=== PATIENT | female | born 1985 | race African-American/Black ===

== ENCOUNTER 2017-05-12 18:02 | Emergency (ER) | payer MEDICAID, OTHER ==
[2017-05-12 18:09] VITALS: BP 99/85; PULSE 75; RESP 22; TEMP 98.6; O2SAT 100
[2017-05-12] MEDS ORDERED: NS 1,000 ML IV ONE (19:34)
[2017-05-12 19:42] LABS: COLOR COLORLESS; LEUKOCYTE ESTERASE,URINE TRACE (NEGATIVE); NITRITE,URINE NEGATIVE (NEGATIVE)
[2017-05-12 19:50] LABS: BACTERIA TRACE /hpf (NONE SEEN)
--- NOTE | 2017-05-12 19:58 | EDPHY ---
H & P Stated Complaint: R ABD PAIN/PROBLEMS WITH URINATION Time Seen by Provider: 05/12/17 18:38 HPI/ROS: CHIEF COMPLAINT: Right lower quadrant pain, 16 weeks , dysuria HISTORY OF PRESENT ILLNESS: The patient presents to the ED with 2 days of right lower quadrant pain, dysuria and a known intrauterine . She is at 16 weeks. She reports a ultrasound in [place] at 8 weeks which diagnosed an IUP. She denies vaginal bleeding or discharge. The patient denies prior abdominal surgical history. The patient denies flank pain or vomiting. She does report mild nausea. The patient has only been taking a vitamin. She does have a remote history of cystitis. REVIEW OF SYSTEMS: A comprehensive 10 point review of systems is otherwise negative aside from elements mentioned in the history of present illness. Source: Patient Exam Limitations: No limitations - Personal History LMP (Females 10-55): Current Tetanus/Diphtheria Vaccine: No - Medical/Surgical History Hx Asthma: No Hx Chronic Respiratory Disease: No Hx Diabetes: No Hx Cardiac Disease: No Hx Renal Disease: No Hx Cirrhosis: No Hx Alcoholism: No Hx HIV/AIDS: No Hx Splenectomy or Spleen Trauma: No Other PMH: DENIES - Social History Smoking Status: Never smoked - Physical Exam Exam: General Appearance: Alert, no distress Eyes: Pupils equal and round no pallor or injection ENT, Mouth: Mucous membranes moist Respiratory: There are no retractions, lungs are clear to auscultation Cardiovascular: Regular rate and rhythm Gastrointestinal: Gravid uterus, tenderness to palpation noted in the right lower quadrant, no CVA tenderness appreciated Neurological: A&O, normal motor function, normal sensory exam, normal cranial nerves Skin: Warm and dry, no rashes Musculoskeletal: Neck is supple nontender Extremities: symmetrical, full range of motion Constitutional: Initial Vital Signs Temperature (C) 37 C 05/12/17 18:06 Heart Rate 75 05/12/17 18:06 Respiratory Rate 22 H 05/12/17 18:06 Blood Pressure 99/85 H 05/12/17 18:06 O2 Sat (%) 100 05/12/17 18:06 O2 Delivery Mode Room Air Allergies/Adverse Reactions: No Known Allergies Allergy (Unverified 05/12/17 18:06) Home Medications: Medication Instructions Recorded 05/12/17 Medical Decision Making - Diagnostics Imaging Results: Imaging Impressions Abdomen Ultrasound 05/12/17 19:34 Impression: 1. Nondiagnostic assessment of the appendix. 2. Tiny amount of free fluid in the right lower quadrant. 3. Normal appearance of the right ovary, with no adnexal mass or torsion. Findings were discussed with Trino Acosta MD at 20:34, on 05/12/2017. ED Course/Re-evaluation: The patient presents to the emergency department with 2 day history of right- sided abdominal pain. She is 16 weeks . She has no associated bleeding or dysuria. The patient was noted to have minimal tenderness on exam. She was taken for a pelvic ultrasound which demonstrated no evidence of a cyst , torsion or significant fluid collection. The patient had no obvious right lower quadrant tenderness while having her ultrasound exam. They are unable to visualize the appendix. The patient did have complaints of dysuria. She is noted to have a normal urinalysis in the emergency department. I did verify normal heart tones and movement with a bedside ultrasound. The patient had an IV established. She received a L of normal saline. The patient has no hypertension and does have a viable intrauterine noted on her ultrasound exam today. At this point time I do feel the patient can be discharged home with likely round ligament pain. As I reexamined her at 8:40 p.m. she has more tenderness on the right side of her uterus. Her right lower quadrant tenderness has markedly improved. My clinical suspicion for acute appendicitis is quite low. I did tell the patient that we have not fully excluded and I would like her to return to the ED in 12 hours for recheck for any ongoing abdominal pain. The patient will schedule a follow-up appointment with [facility]. She will contact their office tomorrow. Differential Diagnosis: Differential diagnosis considered includes appendicitis, ectopic , urinary tract infection, round ligament pain, mesenteric adenitis - Data Points Laboratory Results: Laboratory Results 05/12/17 19:55 05/12/17 19:55 05/12/17 05/12/17 05/12/17 19:55 19:55 18:45 WBC 7.95 10^3/uL 10^3/uL (3.80-9.50) RBC 4.13 10^6/uL L 10^6/uL (4.18-5.33) Hgb 11.4 g/dL L g/dL (12.6-16.3) Hct 33.2 % L % (38.0-47.0) MCV 80.4 fL L fL (81.5-99.8) MCH 27.6 pg L pg (27.9-34.1) MCHC 34.3 g/dL g/dL (32.4-36.7) RDW 12.5 % % (11.5-15.2) Plt Count 237 10^3/uL 10^3/uL (150-400) MPV 10.5 fL fL (8.7-11.7) Neut % (Auto) 54.4 % % (39.3-74.2) Lymph % (Auto) 36.1 % % (15.0-45.0) [place] % (Auto) 6.0 % % (4.5-13.0) Eos % (Auto) 2.8 % % (0.6-7.6) Baso % (Auto) 0.4 % % (0.3-1.7) Nucleat RBC Rel Count 0.0 % % (0.0-0.2) Absolute Neuts (auto) 4.33 10^3/uL 10^3/uL (1.70-6.50) Absolute Lymphs (auto) 2.87 10^3/uL 10^3/uL (1.00-3.00) Absolute Monos (auto) 0.48 10^3/uL 10^3/uL (0.30-0.80) Absolute Eos (auto) 0.22 10^3/uL 10^3/uL (0.03-0.40) Absolute Basos (auto) 0.03 10^3/uL 10^3/uL (0.02-0.10) Absolute Nucleated RBC 0.00 10^3/uL 10^3/uL (0-0.01) Immature Gran % 0.3 % % (0.0-1.1) Immature Gran # 0.02 10^3/uL 10^3/uL (0.00-0.10) Sodium 134 mEq/L mEq/L (134-144) Potassium 3.7 mEq/L mEq/L (3.5-5.2) Chloride 104 mEq/L mEq/L (97-110) Carbon Dioxide 21 mEq/l L mEq/l (22-31) Anion Gap 9 mEq/L mEq/L (8-16) BUN 4 mg/dL L mg/dL (7-23) Creatinine 0.5 mg/dL L mg/dL (0.6-1.0) Estimated GFR > 60 Glucose 81 mg/dL mg/dL (70-100) Calcium 8.9 mg/dL mg/dL (8.5-10.4) Urine Color COLORLESS Urine Appearance CLEAR Urine pH 7.0 (5.0-7.5) Ur Specific [place] 1.001 L (1.002-1.030) Urine Protein NEGATIVE (NEGATIVE) Urine Ketones NEGATIVE (NEGATIVE) Urine Blood NEGATIVE (NEGATIVE) Urine Nitrate NEGATIVE (NEGATIVE) Urine Bilirubin NEGATIVE (NEGATIVE) Urine Urobilinogen NEGATIVE EU EU (0.2-1.0) Ur Leukocyte Esterase TRACE H (NEGATIVE) Urine RBC 1-3 /hpf /hpf (0-3) Urine WBC 1-3 /hpf /hpf (0-3) Ur Epithelial Cells TRACE /lpf /lpf (NONE-1+) Urine Bacteria TRACE /hpf H /hpf (NONE SEEN) Urine Glucose NEGATIVE (NEGATIVE) Medications Given: Discontinued Medications Sodium Chloride (Ns) 1,000 mls @ 0 mls/hr IV EDNOW ONE; Wide Open PRN Reason: Protocol Stop: 05/12/17 19:35 Last Admin: 05/12/17 19:53 Dose: 1,000 mls Departure - Departure Disposition: Home, Routine, Self-Care Clinical Impression: Abdominal pain, Intrauterine Condition: Good Instructions: (ED), Acute Abdominal Pain (ED) Additional Instructions: 1. Sometimes we are unable to diagnose an obvious cause of abdominal pain in the Emergency Department. Based upon our evaluation today, I believe your pain may be simply secondary to ligament pain associated with a growing uterus. Because more serious conditions can be difficult to diagnose early in the course of their presentation, we ask that you return to the Emergency Department in 8-12 hours for a recheck if you are still having pain. This is necessary to exclude the development of a more serious condition such as appendicitis or other intra-abdominal emergency. In the event your pain markedly increases before that time or you develop intractable vomiting or fever return to the Emergency Department immediately. 2. Please contact Dr. Babcock of [facility] to see if you can arrange a follow-up appointment in the next 1-2 days for a recheck. When you contact their office, be sure to tell them that you were in the emergency department with abdominal pain. 3. Continue Tylenol as needed for pain Referrals: [facility] [Provider Group] - As per Instructions
[2017-05-12 20:03] LABS: % IMMATURE GRANULYOCYTES 0.3 % (0.0-1.1); ABSOLUTE IMMATURE GRANULOCYTES 0.02 10^3/uL (0.00-0.10); ADD DIFF? NO; ADD MORPH? NO; ADD SCAN? NO; ATYPICAL LYMPHOCYTE FLAG 10 (0-99); FRAGMENT RBC FLAG 0 (0-99); HEMATOCRIT 33.2 % (38.0-47.0); HEMOGLOBIN 11.4 g/dL (12.6-16.3); LEFT SHIFT FLG 0 (0-99); LIPEMIA HEMOLYSIS FLAG 90 (0-99); MEAN CELL HEMOGLOBIN 27.6 pg (27.9-34.1); MEAN CELL HEMOGLOBIN CONCENTR. 34.3 g/dL (32.4-36.7); MEAN CELL VOLUME 80.4 fL (81.5-99.8); MEAN PLATELET VOLUME 10.5 fL (8.7-11.7); PLATELET CLUMPS FLAG 0 (0-99); PLATELET COUNT 237 10^3/uL (150-400); RED BLOOD CELL COUNT 4.13 10^6/uL (4.18-5.33); RED CELL DISTRIBUTION WIDTH 12.5 % (11.5-15.2)
[2017-05-12 20:33] LABS: ANION GAP 9 mEq/L (8-16); CALCIUM 8.9 mg/dL (8.5-10.4); CARBON DIOXIDE 21 mEq/l (22-31); CHLORIDE 104 mEq/L (97-110); CREATININE 0.5 mg/dL (0.6-1.0); GLOMERULAR FILTRATION RATE > 60; GLUCOSE 81 mg/dL (70-100); POTASSIUM 3.7 mEq/L (3.5-5.2); SODIUM 134 mEq/L (134-144)
== END 2017-05-12 21:10 | disposition home or self-care (01) ==
DX: O26.892 Other specified pregnancy related conditions, second trimester (principal); R10.31 Right lower quadrant pain; O99.282 Endocrine, nutritional and metabolic diseases complicating pregnancy, second trimester; E86.9 Volume depletion, unspecified; Z3A.16 16 weeks gestation of pregnancy

== ENCOUNTER 2017-10-01 13:59 | Observation (INO) | payer OTHER ==
[2017-10-01] MEDS ORDERED: ONDANSETRON 4 MG/2 ML VIAL IVP PRN (14:07)
[2017-10-01] MEDS ORDERED: METOCLOPRAMIDE 10 MG/2 ML VIAL IVP PRN (14:08)
[2017-10-01] MEDS ORDERED: LR 1,000 ML IV SCH (14:30)
[2017-10-01 14:48] LABS: PLATELET COUNT 210 10^3/uL (150-400)
== END 2017-10-01 17:59 | disposition home or self-care (01) ==
LOC: FLD 13:59
PROVIDERS: ADMIT Advanced Practice Midwife; ATTEND Advanced Practice Midwife
DX: O21.2 Late vomiting of pregnancy (principal); Z3A.36 36 weeks gestation of pregnancy
CPT/HCPCS: 59025; G0378; J2405

== ENCOUNTER 2017-10-30 21:16 | Inpatient (IN) | payer OTHER ==
[2017-10-30] MEDS ORDERED: ONDANSETRON 4 MG/2 ML VIAL IVP PRN (21:55)
[2017-10-30] MEDS ORDERED: LR 1,000 ML IV ONE (22:00)
[2017-10-30 22:48] LABS: PLATELET COUNT 211 10^3/uL (150-400)
[2017-10-30] MEDS: ACETAMINOPHEN 500 MG TAB PO PRN (22:53)
[2017-10-30] MEDS: LR 1,000 ML IV SCH (22:55)
[2017-10-31] MEDS ORDERED: PROMETHAZINE HCL 25 MG/ML INJ IM ONE (00:15)
[2017-10-31] MEDS: ACETAMINOPHEN 500 MG TAB PO PRN (03:31)
[2017-10-31] MEDS ORDERED: LR 500 ML IV PRN (10:46)
[2017-10-31] MEDS ORDERED: AMMONIA AROMATIC 1 EACH AMP IH PRN (10:47)
[2017-10-31] MEDS ORDERED: LR 1,000 ML IV PRN (10:47)
[2017-10-31] MEDS ORDERED: OXYTOCIN/RINGERS LACTATE 1,000 ML IV PRN (10:47)
[2017-10-31] MEDS ORDERED: OLIVE OIL 118 ML BTL MISC PRN (10:47)
[2017-10-31] MEDS ORDERED: MISOPROSTOL 200 MCG TAB PO PRN (10:47)
[2017-10-31] MEDS ORDERED: AMPICILLIN SODIUM 2 GM in STERILE WATER INJ 25 ML IV ONE (10:47)
[2017-10-31] MEDS ORDERED: EPSOM SALT 454 GM TP PRN (10:47)
[2017-10-31] MEDS ORDERED: LIDOCAINE 1% 300 MG/30 ML SDV SC PRN (10:47)
[2017-10-31] MEDS ORDERED: TERBUTALINE SULFATE 1 MG/ML VIAL IV PRN (10:47)
[2017-10-31] MEDS ORDERED: OXYTOCIN/RINGERS LACTATE 500 ML IV SCH (11:00)
[2017-10-31] MEDS: LR 1,000 ML IV SCH ×2 (11:16→16:20)
[2017-10-31 12:01] LABS: PLATELET COUNT 181 10^3/uL (150-400)
--- NOTE | 2017-10-31 13:32 | GHP ---
[f rep st] HISTORY AND PHYSICAL DATE OF ADMISSION: 10/30/2017 ADMITTING DIAGNOSIS: Intrauterine at 40-and-4/7 weeks gestation with active labor, headach e, and proteinuria. Admission for augmentation of labor. HISTORY OF PRESENT ILLNESS: The patient is a 32-year-old, 3, para 0-0-2-0 with a last menstr ual period of 01/20/2017, and an EDC of 10/27/2017, which was confirmed by a first trimester ultrasou nd. She has had good care at [facility] since registration at 17 weeks . She initially had her first trimester care in [place]. She presented with prodromal labor c ontractions, beginning on . She was evaluated in the office yesterday and was found to have normal blood pressure 120/80, and a vaginal exam was 1, 90%, and -2. Overnight, she continued to hav e worsening pain and contractions and severe nausea/vomiting, and she presented complaining of a head ache. When she was evaluated in labor and delivery, her blood pressures remained normal. PIH labs w ere also normal, and her cervix was 1 cm, but she was dipping 2+ proteinuria on a urine dip. She rec eived IV hydration and rested overnight, and a p:c ratio was repeated, and the level was 0.9. She co ntinued to have normal blood pressures in the 110s to 120s over 70s to 80s. She received morphine sl eep, and her headache resolved. Contractions have continued in mild form. In the morning, I evaluat ed her. She reported her headache has resolved. Her contractions were mild, but I checked her cervi louann exam was 3, 90%, -2. Therefore, because she had changed her cervix and had proteinuria and some concerning signs for preeclampsia, I made the decision to admit her for labor and labor augmentation with Pitocin. The patient has no significant risk factors except for anemia. PAST OBSTETRICAL HISTORY: She had an elective termination in 2013 and a SAB with D and C in 2014. PAST MEDICAL HISTORY: She has no significant past medical history. PAST SURGICAL HISTORY: Just the D and C x2. ALLERGIES: No known drug allergies. MEDICATIONS: Include vitamins and DHEA. LABS: She is O positive, antibody negative, RPR nonreactive. Rubella immune. Hepatitis negative. HIV negative. Pap normal, except for yeast. Gonorrhea and chlamydia negative. 1-hour GTT 129. GBS is positive. SOCIAL HISTORY: She is . Her is in the [employer], and he is deployed in [employer] for the ne xt 9 months. She lives with her sister, and she is from [place]. She denies tobacco, alcohol, and evita g use, and she is currently not working. FAMILY HISTORY: Noncontributory. PHYSICAL EXAMINATION: VITAL SIGNS: Today, she is afebrile. Blood pressures remain normal one-teens over 70s. heart tones 140s, reactive, moderate variability, category 1. Contractions every 3 -5 minutes. Again, cervix is 3, 90%, -2, and pH labs were normal. ASSESSMENT/PLAN: A 32-year-old 3, para 0-0-2-0 at 40-and-4/7 weeks' gestation for augmentati on of labor. Patient will receive Pitocin per protocol. status is reassuring. Repeated her p H labs. Will keep a close eye on her blood pressure and her vital signs. Pain management as desired by patient. /[id number]/MODL
[2017-10-31] MEDS ORDERED: fentaNYL 200 MCG, BUPIVACAINE 0.5% 20 ML in NS 100 ML EP SCH (14:30)
[2017-10-31] MEDS ORDERED: BUPIVACAINE 0.25% 30 ML SDV ONE (14:52)
[2017-10-31] MEDS ORDERED: fentaNYL 100 MCG/2 ML INJ ONE (14:52)
[2017-10-31] MEDS ORDERED: PHENYLEPHRINE HCL 100 MCG/ML SYR ONE (14:53)
--- NOTE | 2017-10-31 15:22 | PREANESOB ---
Obstetric Pre-Anesthesia Info - General Info Proposed Procedure: PCEA : 3 Para: 0 YUN: 10/27/17 Gestational Age: 40 week(s) and 3 day(s) - Info Status: Full Term - Labor Status Cervical Dilation per last OB SVE: 3 Indications for Labor Analgesia: Induction of Labor Labor Epidural: Proposed Anesthesia ROS: Negative reviewn of systems Allergies/Adverse Reactions: Allergy/AdvReac Type Severity Reaction Status Date / Time No Known Allergies Allergy Unverified 05/12/17 18:06 Home Medications: Medication Instructions Recorded 1 tab PO DAILY 05/12/17 Tylenol 325mg (*) 500 mg PO PRN 10/01/17 Zantac 150 mg PO DAILY 10/30/17 Visit Medications: Generic Name Dose Route Start Last Admin Trade Name Freq PRN Reason Stop Dose Admin Acetaminophen 500 - 1,000 mg 10/30/17 21:55 10/31/17 03:31 Tylenol PO 04/28/18 21:54 500 mg Q6 PRN Administration Pain, Mild/Fever, Can Take PO Ammonia (Aromatic Spirit) 1 each 10/31/17 10:47 Ammonia Aromatic IH 11/10/17 10:46 ONCE PRN Fainting Lactated Ringer's 1,000 mls @ 125 mls/hr 10/30/17 22:30 10/31/17 11:16 Lr IV 04/28/18 22:29 1,000 mls CONT GEORGIE Administration Lactated Ringer's 500 mls @ 500 mls/hr 10/31/17 10:46 Lr IV 11/01/17 10:46 PRN PRN Maternal Hypotension Oxytocin/Lactated Ringer's 500 mls @ 0 mls/hr 10/31/17 11:00 10/31/17 11:20 Pitocin 30 Units/Lr (Premix) IV 04/29/18 10:59 500 mls CONT GEORGIE Administration Protocol Per Protocol Ampicillin Sodium 1 gm/ 15 mls @ 60 mls/hr 10/31/17 14:48 Sterile Water IV 11/30/17 14:47 Q4H GEORGIE Protocol Lactated Ringer's 1,000 mls @ 0 mls/hr 10/31/17 10:47 Lr IV 11/01/17 10:46 PRN PRN SEE PROTOCOL CONDITIONS Protocol Per Protocol Oxytocin/Lactated Ringer's 1,000 mls @ 0 mls/hr 10/31/17 10:47 Pitocin 20 Units/Lr (Premix) IV PRN PRN Post bleeding Per Protocol Fentanyl 200 mcg/ Bupivacaine 100 mls @ 0 mls/hr 10/31/17 14:30 HCl 20 ml/ Sodium Chloride EP 11/10/17 14:29 CONT GEORGIE Protocol As Directed Ibuprofen 600 mg 10/31/17 10:47 Motrin PO 04/29/18 10:46 Q6HRS PRN post , inflammation Lidocaine HCl 300 mg 10/31/17 10:47 Lidocaine Hcl 1% SC 04/29/18 10:46 ONCE PRN episiotomy Magnesium Sulfate 454 gm 10/31/17 10:47 Epsom Salt TP 04/29/18 10:46 Q1H PRN perineal discomfort Misoprostol 800 - 1,000 mcg 10/31/17 10:47 Cytotec PO 04/29/18 10:46 ONCE PRN Vaginal [place] Oil 118 ml 10/31/17 10:47 Sweet Oil MISC 04/29/18 10:46 ONCE PRN perineal massage Ondansetron HCl 4 mg 10/30/17 21:55 10/30/17 22:33 Zofran IVP 04/28/18 21:54 4 mg Q6 PRN Administration Nausea/Vomiting, Can't Take PO Terbutaline Sulfate 0.25 mg 10/31/17 10:47 Brethine IV 04/29/18 10:46 ONCE PRN Tachysystole Discontinued Medications Generic Name Dose Route Start Last Admin Trade Name Freq PRN Reason Stop Dose Admin Bupivacaine HCl Confirm 10/31/17 14:52 Sensorcaine 0.25% Sdv Administered 10/31/17 14:53 Dose 30 ml .ROUTE .STK-MED ONE Fentanyl Confirm 10/31/17 14:52 Sublimaze Administered 10/31/17 14:53 Dose 100 mcg .ROUTE .STK-MED ONE Lactated Ringer's 1,000 mls @ 0 mls/hr 10/30/17 22:00 10/30/17 22:27 Lr IV 10/30/17 22:01 1,000 mls ONCE ONE Administration As Directed Ampicillin Sodium 2 gm/ 25 mls @ 100 mls/hr 10/31/17 10:47 10/31/17 12:00 Sterile Water IV 10/31/17 11:01 25 mls ONCE ONE Administration Protocol Morphine Sulfate 10 mg 10/31/17 00:15 10/31/17 00:34 Morphine IM 10/31/17 00:16 10 mg ONCE ONE Administration Morphine Sulfate 5 mg 10/31/17 00:15 10/31/17 00:31 Morphine IVP 10/31/17 00:16 5 mg ONCE ONE Administration Phenylephrine HCl Confirm 10/31/17 14:53 Neosynephrine Administered 10/31/17 14:54 Dose 1,000 mcg .ROUTE .STK-MED ONE Promethazine HCl 12.5 mg 10/31/17 00:15 10/31/17 00:35 Phenergan IM 10/31/17 00:16 12.5 mg ONCE ONE Administration - Anesthesia History Anesthesia & Operative History: No Prior Problems (No prior epidural) - Vital Signs Height/Weight (Nursing): Height 162.56 cm Weight 72.575 kg - Focused Exam Neck exam: FROM Mallampati Score: Class 2 Mouth exam: normal dental/mouth exam Cardiovascular: regular rate and rhythym Labs: 10/31/17 11:30 10/31/17 11:30 Patient ABO/Rh O POSITIVE 10/30/17 22:22 Uric Acid 5.3 mg/dL (2.5-6.8) 10/31/17 11:30 Total Bilirubin 0.8 mg/dL (0.1-1.4) 10/31/17 11:30 Conjugated Bilirubin 0.4 mg/dL (0.0-0.5) 10/31/17 11:30 Unconjugated Bilirubin 0.4 mg/dL (0.0-1.1) 10/31/17 11:30 AST 17 IU/L (14-46) 10/31/17 11:30 ALT 21 IU/L (9-52) 10/31/17 11:30 Lactate Dehydrogenase 400 IU/L (313-618) 10/31/17 11:30
--- NOTE | 2017-10-31 15:24 | POSTANESTH ---
Post Anesthetic Evaluation Cardiovascular Status: Similar to Pre-Op Cond Respiratory Status: Similar to Pre-op Cond. Level of Consciousness/Mental Status: Can Participate in Eval Pain Control: Adequate, Prn Tx Ordered Nausea/Vomiting Control: Adequate, Prn Tx Ordered Complications Possibly Related to Anesthesia: None Noted (Post epi placement)
[2017-10-31] MEDS ORDERED: LR 500 ML IV SCH (15:30)
--- NOTE | 2017-10-31 15:30 | OBPROG ---
Labor Progress Note Assessment/Plan: Assessment: 32 y/o @ 40 4/7 weeks augmentation of labor Plan: Pt is comfortable now with epidural in place. AROM thin meconium, will have [employer] PROGRAM[employer] for delivery. Continue pitocin. 10/31/17 15:28 Subjective/Intrapartum Course: 10/31/17 15:27 Pt is now comfortable with her epidural. Objective: 10/31/17 11:30 10/31/17 11:30 Patient ABO/Rh O POSITIVE 10/30/17 22:22 Uric Acid 5.3 mg/dL (2.5-6.8) 10/31/17 11:30 Total Bilirubin 0.8 mg/dL (0.1-1.4) 10/31/17 11:30 Conjugated Bilirubin 0.4 mg/dL (0.0-0.5) 10/31/17 11:30 Unconjugated Bilirubin 0.4 mg/dL (0.0-1.1) 10/31/17 11:30 AST 17 IU/L (14-46) 10/31/17 11:30 ALT 21 IU/L (9-52) 10/31/17 11:30 Lactate Dehydrogenase 400 IU/L (313-618) 10/31/17 11:30 - SVE Dilation (cm): 5 Effacement (%): 90 Station: -1 Membranes: AROM Amniotic Fluid Color: Meconium Stained - Contraction Pattern Assessment Current Contraction Pattern: Regular (Q 4-5) - FHR Assessment Son FHR (bpm): 130 FHR Pattern Variability: Moderate FHR Category: 1 - Procedures Non-surgical Procedures: Amniotomy - AP Antepartum Course: 10/31/17 15:28 transfer @ 18 weeks, GBS + Oxytocin Orders Assessment - Pre-Induction/Augmentation Assessment Gestational Age: 40 week(s) and 3 day(s) ICD10 Worksheet Patient Problems: Problems Problem Status Onset Normal labor Acute - ICD10 Problem Qualifiers (1) Normal labor
[2017-10-31] MEDS: AMPICILLIN SODIUM 1 GM in STERILE WATER INJ 15 ML IV SCH ×2 (16:16→20:01)
--- NOTE | 2017-10-31 17:54 | OBPROG ---
Labor Progress Note Assessment/Plan: Assessment: 32 y/o @ 40 4/7 weeks augmentation of labor Plan: She has good cx change on pitocin. AROM thin meconium, will have [employer] SAL[employer] MANAGER for delivery. Continue current course. 10/31/17 15:28 10/31/17 17:53 Subjective/Intrapartum Course: 10/31/17 15:27 Pt is now comfortable with her epidural. 10/31/17 17:51 Pt continues to be comfortable with her epidural. She denies pelvic pressure. Objective: 10/31/17 11:30 10/31/17 11:30 Patient ABO/Rh O POSITIVE 10/30/17 22:22 Uric Acid 5.3 mg/dL (2.5-6.8) 10/31/17 11:30 Total Bilirubin 0.8 mg/dL (0.1-1.4) 10/31/17 11:30 Conjugated Bilirubin 0.4 mg/dL (0.0-0.5) 10/31/17 11:30 Unconjugated Bilirubin 0.4 mg/dL (0.0-1.1) 10/31/17 11:30 AST 17 IU/L (14-46) 10/31/17 11:30 ALT 21 IU/L (9-52) 10/31/17 11:30 Lactate Dehydrogenase 400 IU/L (313-618) 10/31/17 11:30 - SVE Dilation (cm): 7 Effacement (%): 90 Station: 0 Membranes: AROM Amniotic Fluid Color: Meconium Stained - Contraction Pattern Assessment Current Contraction Pattern: Regular (Q 2-3) - FHR Assessment Son FHR (bpm): 130 FHR Pattern Variability: Moderate FHR Category: 1 - Procedures Non-surgical Procedures: Amniotomy - AP Antepartum Course: 10/31/17 15:28 transfer @ 18 weeks, GBS + Oxytocin Orders Assessment - Pre-Induction/Augmentation Assessment Gestational Age: 40 week(s) and 3 day(s) ICD10 Worksheet Patient Problems: Problems Problem Status Onset Normal labor Acute - ICD10 Problem Qualifiers (1) Normal labor
[2017-10-31] MEDS ORDERED: AMMONIA AROMATIC 1 EACH AMP IH ONE (18:38)
[2017-10-31] MEDS ORDERED: OLIVE OIL 118 ML BTL ONE (18:38)
[2017-10-31] MEDS ORDERED: TERBUTALINE SULFATE 1 MG/ML VIAL ONE (18:38)
[2017-10-31] MEDS ORDERED: LIDOCAINE 1% 300 MG/30 ML SDV ONE (18:38)
[2017-10-31] MEDS ORDERED: OXYTOCIN 10 UNIT/ML VIAL ONE (18:39)
[2017-10-31] MEDS ORDERED: MISOPROSTOL 200 MCG TAB ONE (18:39)
--- NOTE | 2017-10-31 19:52 | OBPROG ---
Labor Progress Note Assessment/Plan: Assessment: 32 y/o @ 40 4/7 weeks augmentation of labor Plan: She has good cx change on pitocin. IUPC placed to document contraction strength. Continue current course. status reassuring. 10/31/17 15:28 10/31/17 17:53 10/31/17 19:52 Subjective/Intrapartum Course: 10/31/17 15:27 Pt is now comfortable with her epidural. 10/31/17 17:51 Pt continues to be comfortable with her epidural. She denies pelvic pressure. 10/31/17 19:51 Pt is beginning to feel pelvic pressure. Objective: 10/31/17 11:30 10/31/17 11:30 Patient ABO/Rh O POSITIVE 10/30/17 22:22 Uric Acid 5.3 mg/dL (2.5-6.8) 10/31/17 11:30 Total Bilirubin 0.8 mg/dL (0.1-1.4) 10/31/17 11:30 Conjugated Bilirubin 0.4 mg/dL (0.0-0.5) 10/31/17 11:30 Unconjugated Bilirubin 0.4 mg/dL (0.0-1.1) 10/31/17 11:30 AST 17 IU/L (14-46) 10/31/17 11:30 ALT 21 IU/L (9-52) 10/31/17 11:30 Lactate Dehydrogenase 400 IU/L (313-618) 10/31/17 11:30 - SVE Dilation (cm): 8 Effacement (%): 90 Station: +1 Membranes: AROM Amniotic Fluid Color: Meconium Stained - Contraction Pattern Assessment Current Contraction Pattern: Regular (Q 2-3) - Procedures Non-surgical Procedures: Amniotomy, IUPC - AP Antepartum Course: 10/31/17 15:28 transfer @ 18 weeks, GBS + Oxytocin Orders Assessment - Pre-Induction/Augmentation Assessment Gestational Age: 40 week(s) and 3 day(s) ICD10 Worksheet Patient Problems: Problems Problem Status Onset Normal labor Acute - ICD10 Problem Qualifiers (1) Normal labor
--- NOTE | 2017-10-31 21:18 | OBPROG ---
Labor Progress Note Assessment/Plan: Assessment: 32 y/o @ 40 4/7 weeks augmentation of labor Plan: Pt hasn't changed in almost 2 hours and baby was having episodes of decreased variability. I had a good response to scalp stimulation and we flipped the patient to hands and knees to help rotate the baby and enhance descent. status is reassuring now, will continue to monitor. 10/31/17 15:28 10/31/17 17:53 10/31/17 19:52 10/31/17 21:15 Subjective/Intrapartum Course: 10/31/17 15:27 Pt is now comfortable with her epidural. 10/31/17 17:51 Pt continues to be comfortable with her epidural. She denies pelvic pressure. 10/31/17 19:51 Pt is beginning to feel pelvic pressure. 10/31/17 21:14 Pt is feeling increased pelvic pressure. Objective: 10/31/17 11:30 10/31/17 11:30 Patient ABO/Rh O POSITIVE 10/30/17 22:22 Uric Acid 5.3 mg/dL (2.5-6.8) 10/31/17 11:30 Total Bilirubin 0.8 mg/dL (0.1-1.4) 10/31/17 11:30 Conjugated Bilirubin 0.4 mg/dL (0.0-0.5) 10/31/17 11:30 Unconjugated Bilirubin 0.4 mg/dL (0.0-1.1) 10/31/17 11:30 AST 17 IU/L (14-46) 10/31/17 11:30 ALT 21 IU/L (9-52) 10/31/17 11:30 Lactate Dehydrogenase 400 IU/L (313-618) 10/31/17 11:30 - SVE Dilation (cm): 8 Effacement (%): 90 Station: 0, +1 Membranes: AROM Amniotic Fluid Color: Meconium Stained - Contraction Pattern Assessment Current Contraction Pattern: Regular (Q 2-3) - FHR Assessment Son FHR (bpm): 130 FHR Pattern Variability: Minimal, Moderate (was minimal variability, improved with scalp stimulation and position change) FHR Category: 1 - Procedures Non-surgical Procedures: Amniotomy, IUPC - AP Antepartum Course: 10/31/17 15:28 transfer @ 18 weeks, GBS + Oxytocin Orders Assessment - Pre-Induction/Augmentation Assessment Gestational Age: 40 week(s) and 3 day(s) ICD10 Worksheet Patient Problems: Problems Problem Status Onset Normal labor Acute - ICD10 Problem Qualifiers (1) Normal labor
--- NOTE | 2017-10-31 22:21 | OBPROG ---
Labor Progress Note Assessment/Plan: Assessment: 32 y/o @ 40 4/7 weeks augmentation of labor Plan: Baby's variability has improved and she is having spontaneous accelerations. We have had little cervical change, but some since the last check. We will try sitting straight upright and hopefully that improves the descent. 10/31/17 15:28 10/31/17 17:53 10/31/17 19:52 10/31/17 21:15 10/31/17 22:19 Subjective/Intrapartum Course: 10/31/17 15:27 Pt is now comfortable with her epidural. 10/31/17 17:51 Pt continues to be comfortable with her epidural. She denies pelvic pressure. 10/31/17 19:51 Pt is beginning to feel pelvic pressure. 10/31/17 21:14 Pt is feeling increased pelvic pressure. 10/31/17 22:18 Pt continues to feel pelvic pressure. She is now lying on her side after hands and knees. Objective: 10/31/17 11:30 10/31/17 11:30 Patient ABO/Rh O POSITIVE 10/30/17 22:22 Uric Acid 5.3 mg/dL (2.5-6.8) 10/31/17 11:30 Total Bilirubin 0.8 mg/dL (0.1-1.4) 10/31/17 11:30 Conjugated Bilirubin 0.4 mg/dL (0.0-0.5) 10/31/17 11:30 Unconjugated Bilirubin 0.4 mg/dL (0.0-1.1) 10/31/17 11:30 AST 17 IU/L (14-46) 10/31/17 11:30 ALT 21 IU/L (9-52) 10/31/17 11:30 Lactate Dehydrogenase 400 IU/L (313-618) 10/31/17 11:30 - SVE Dilation (cm): 9 Effacement (%): 90 Station: +1 Membranes: AROM Amniotic Fluid Color: Meconium Stained - Contraction Pattern Assessment Current Contraction Pattern: Regular (Q 2-3) - FHR Assessment Son FHR (bpm): 140 FHR Pattern Variability: Moderate FHR Category: 1 - Procedures Non-surgical Procedures: Amniotomy, IUPC - AP Antepartum Course: 10/31/17 15:28 transfer @ 18 weeks, GBS + Oxytocin Orders Assessment - Pre-Induction/Augmentation Assessment Gestational Age: 40 week(s) and 3 day(s) ICD10 Worksheet Patient Problems: Problems Problem Status Onset Normal labor Acute - ICD10 Problem Qualifiers (1) Normal labor
--- NOTE | 2017-10-31 23:59 | OBPROG ---
Labor Progress Note Assessment/Plan: Assessment: 32 y/o @ 40 4/7 weeks augmentation of labor Plan: Cervix remains 8-9 cm dilated, without further change or descent of the head. Her contractions have been adequate for many hours and I feel that it is prudent to now proceed with a c section for arrest of dilation. I spoke to the patient and her family and answered all questions, obtaining consent now. 10/31/17 15:28 10/31/17 17:53 10/31/17 19:52 10/31/17 21:15 10/31/17 22:19 10/31/17 23:56 Subjective/Intrapartum Course: 10/31/17 15:27 Pt is now comfortable with her epidural. 10/31/17 17:51 Pt continues to be comfortable with her epidural. She denies pelvic pressure. 10/31/17 19:51 Pt is beginning to feel pelvic pressure. 10/31/17 21:14 Pt is feeling increased pelvic pressure. 10/31/17 22:18 Pt continues to feel pelvic pressure. She is now lying on her side after hands and knees. 10/31/17 23:56 Pt remains comfortable, feeling some pelvic pressure. She has tried multiple position changes. Objective: 10/31/17 11:30 10/31/17 11:30 Patient ABO/Rh O POSITIVE 10/30/17 22:22 Uric Acid 5.3 mg/dL (2.5-6.8) 10/31/17 11:30 Total Bilirubin 0.8 mg/dL (0.1-1.4) 10/31/17 11:30 Conjugated Bilirubin 0.4 mg/dL (0.0-0.5) 10/31/17 11:30 Unconjugated Bilirubin 0.4 mg/dL (0.0-1.1) 10/31/17 11:30 AST 17 IU/L (14-46) 10/31/17 11:30 ALT 21 IU/L (9-52) 10/31/17 11:30 Lactate Dehydrogenase 400 IU/L (313-618) 10/31/17 11:30 - SVE Dilation (cm): 8 Effacement (%): 90 Station: +1 Membranes: AROM Amniotic Fluid Color: Meconium Stained - Contraction Pattern Assessment Current Contraction Pattern: Regular (Q 2-3) - FHR Assessment Son FHR (bpm): 150 FHR Pattern Variability: Minimal - Procedures Non-surgical Procedures: Amniotomy, IUPC - AP Antepartum Course: 10/31/17 15:28 transfer @ 18 weeks, GBS + Oxytocin Orders Assessment - Pre-Induction/Augmentation Assessment Gestational Age: 40 week(s) and 3 day(s) ICD10 Worksheet Patient Problems: Problems Problem Status Onset Normal labor Acute - ICD10 Problem Qualifiers (1) Normal labor
--- NOTE | 2017-11-01 00:37 | PREANESOB ---
Obstetric Pre-Anesthesia Info - General Info Proposed Procedure: C/S : 3 Para: 0 YUN: 10/27/17 Gestational Age: 40 week(s) and 3 day(s) - Info Status: Full Term - Labor Status Cervical Dilation per last OB SVE: 8 Station per last OB SVE: +1 Amniotic Fluid Color: Meconium Stained Section History: Primary Labor Epidural: Yes Anesthesia Allergies/Adverse Reactions: Allergy/AdvReac Type Severity Reaction Status Date / Time No Known Allergies Allergy Unverified 05/12/17 18:06 Home Medications: Medication Instructions Recorded 1 tab PO DAILY 05/12/17 Tylenol 325mg (*) 500 mg PO PRN 10/01/17 Zantac 150 mg PO DAILY 10/30/17 Visit Medications: Generic Name Dose Route Start Last Admin Trade Name Freq PRN Reason Stop Dose Admin Acetaminophen 500 - 1,000 mg 10/30/17 21:55 10/31/17 03:31 Tylenol PO 04/28/18 21:54 500 mg Q6 PRN Administration Pain, Mild/Fever, Can Take PO Ammonia (Aromatic Spirit) 1 each 10/31/17 10:47 Ammonia Aromatic IH 11/10/17 10:46 ONCE PRN Fainting Lactated Ringer's 1,000 mls @ 125 mls/hr 10/30/17 22:30 10/31/17 16:20 Lr IV 04/28/18 22:29 1,000 mls CONT GEORGIE Administration Lactated Ringer's 500 mls @ 500 mls/hr 10/31/17 10:46 Lr IV 11/01/17 10:46 PRN PRN Maternal Hypotension Oxytocin/Lactated Ringer's 500 mls @ 0 mls/hr 10/31/17 11:00 10/31/17 11:20 Pitocin 30 Units/Lr (Premix) IV 04/29/18 10:59 500 mls CONT GEORGIE Administration Protocol Per Protocol Ampicillin Sodium 1 gm/ 15 mls @ 60 mls/hr 10/31/17 14:48 10/31/17 20:01 Sterile Water IV 11/30/17 14:47 15 mls Q4H GEORGIE Administration Protocol Lactated Ringer's 1,000 mls @ 0 mls/hr 10/31/17 10:47 Lr IV 11/01/17 10:46 PRN PRN SEE PROTOCOL CONDITIONS Protocol Per Protocol Oxytocin/Lactated Ringer's 1,000 mls @ 0 mls/hr 10/31/17 10:47 Pitocin 20 Units/Lr (Premix) IV PRN PRN Post bleeding Per Protocol Fentanyl 200 mcg/ Bupivacaine 100 mls @ 0 mls/hr 10/31/17 14:30 HCl 20 ml/ Sodium Chloride EP 11/10/17 14:29 CONT GEORGIE Protocol As Directed Lactated Ringer's 500 mls @ 0 mls/hr 10/31/17 15:30 Lr IV 04/29/18 15:29 CONT GEORGIE As Directed Cefazolin Sodium 2 gm in 20 mls @ 200 mls/hr 11/01/17 00:45 Cefazolin Syringe IVP 11/01/17 00:50 ONCALL ONE Ibuprofen 600 mg 10/31/17 10:47 Motrin PO 04/29/18 10:46 Q6HRS PRN post , inflammation Lidocaine HCl 300 mg 10/31/17 10:47 Lidocaine Hcl 1% SC 04/29/18 10:46 ONCE PRN episiotomy Magnesium Sulfate 454 gm 10/31/17 10:47 Epsom Salt TP 04/29/18 10:46 Q1H PRN perineal discomfort Misoprostol 800 - 1,000 mcg 10/31/17 10:47 Cytotec PO 04/29/18 10:46 ONCE PRN Vaginal Atony/Bleeding [place] Oil 118 ml 10/31/17 10:47 Sweet Oil MISC 04/29/18 10:46 ONCE PRN perineal massage Ondansetron HCl 4 mg 10/30/17 21:55 10/30/17 22:33 Zofran IVP 04/28/18 21:54 4 mg Q6 PRN Administration Nausea/Vomiting, Can't Take PO Terbutaline Sulfate 0.25 mg 10/31/17 10:47 Brethine IV 04/29/18 10:46 ONCE PRN Tachysystole Discontinued Medications Generic Name Dose Route Start Last Admin Trade Name Freq PRN Reason Stop Dose Admin Ammonia (Aromatic Spirit) Confirm 10/31/17 18:38 Ammonia Aromatic Administered 10/31/17 18:39 Dose 1 each IH .STK-MED ONE Bupivacaine HCl Confirm 10/31/17 14:52 Sensorcaine 0.25% Sdv Administered 10/31/17 14:53 Dose 30 ml .ROUTE .STK-MED ONE Fentanyl Confirm 10/31/17 14:52 Sublimaze Administered 10/31/17 14:53 Dose 100 mcg .ROUTE .STK-MED ONE Lactated Ringer's 1,000 mls @ 0 mls/hr 10/30/17 22:00 10/30/17 22:27 Lr IV 10/30/17 22:01 1,000 mls ONCE ONE Administration As Directed Ampicillin Sodium 2 gm/ 25 mls @ 100 mls/hr 10/31/17 10:47 10/31/17 12:00 Sterile Water IV 10/31/17 11:01 25 mls ONCE ONE Administration Protocol Lidocaine HCl Confirm 10/31/17 18:38 Lidocaine Hcl 1% Administered 10/31/17 18:39 Dose 300 mg .ROUTE .STK-MED ONE Misoprostol Confirm 10/31/17 18:39 Cytotec Administered 10/31/17 18:40 Dose 1,000 mcg .ROUTE .STK-MED ONE Morphine Sulfate 10 mg 10/31/17 00:15 10/31/17 00:34 Morphine IM 10/31/17 00:16 10 mg ONCE ONE Administration Morphine Sulfate 5 mg 10/31/17 00:15 10/31/17 00:31 Morphine IVP 10/31/17 00:16 5 mg ONCE ONE Administration [place] Oil Confirm 10/31/17 18:38 Sweet Oil Administered 10/31/17 18:39 Dose 118 ml .ROUTE .STK-MED ONE Oxytocin Confirm 10/31/17 18:39 Pitocin Administered 10/31/17 18:40 Dose 40 unit .ROUTE .STK-MED ONE Phenylephrine HCl Confirm 10/31/17 14:53 Neosynephrine Administered 10/31/17 14:54 Dose 1,000 mcg .ROUTE .STK-MED ONE Promethazine HCl 12.5 mg 10/31/17 00:15 10/31/17 00:35 Phenergan IM 10/31/17 00:16 12.5 mg ONCE ONE Administration Terbutaline Sulfate Confirm 10/31/17 18:38 Brethine Administered 10/31/17 18:39 Dose 1 mg .ROUTE .STK-MED ONE - Anesthesia History Anesthesia & Operative History: No Prior Problems - Vital Signs Height/Weight (Nursing): Height 162.56 cm Weight 72.575 kg - Focused Exam Neck exam: FROM Mallampati Score: Class 2 Mouth exam: normal dental/mouth exam Pulmonary: no respiratory distress Cardiovascular: regular rate and rhythym Labs: 10/31/17 11:30 10/31/17 11:30 Patient ABO/Rh O POSITIVE 10/30/17 22:22 Uric Acid 5.3 mg/dL (2.5-6.8) 10/31/17 11:30 Total Bilirubin 0.8 mg/dL (0.1-1.4) 10/31/17 11:30 Conjugated Bilirubin 0.4 mg/dL (0.0-0.5) 10/31/17 11:30 Unconjugated Bilirubin 0.4 mg/dL (0.0-1.1) 10/31/17 11:30 AST 17 IU/L (14-46) 10/31/17 11:30 ALT 21 IU/L (9-52) 10/31/17 11:30 Lactate Dehydrogenase 400 IU/L (313-618) 10/31/17 11:30 - Plan Anesthetic Plan: convert FUNMI for C/S
[2017-11-01] MEDS ORDERED: CITRIC ACID/SODIUM CITRATE 30 ML UDCUP ONE (00:38)
[2017-11-01] MEDS ORDERED: PHENYLEPHRINE HCL 100 MCG/ML SYR ONE (00:39)
[2017-11-01] MEDS ORDERED: ceFAZolin 2 GM/SWFI 2 GM/20 ML SYR IVP ONE (00:45)
[2017-11-01] MEDS ORDERED: fentaNYL 100 MCG/2 ML INJ ONE (00:47)
[2017-11-01] MEDS ORDERED: morphINE PF 5 MG/10 ML INJ ONE (00:51)
[2017-11-01] MEDS ORDERED: RANITIDINE 50 MG/2 ML VIAL ONE (00:57)
[2017-11-01] MEDS ORDERED: METHYLERGONOVINE MAL 0.2 MG/ML INJ ONE (01:26)
[2017-11-01] MEDS ORDERED: NALOXONE HCL 0.4 MG/ML INJ IVP PRN (01:57)
[2017-11-01] MEDS ORDERED: MEPERIDINE 25 MG/ML SYR IVP PRN (01:57)
[2017-11-01] MEDS ORDERED: PHENYLEPHRINE HCL 100 MCG/ML SYR IVP PRN (01:57)
[2017-11-01] MEDS ORDERED: fentaNYL 100 MCG/2 ML INJ IVP PRN (01:57)
[2017-11-01] MEDS ORDERED: HYDROmorphONE/DILAUDID 2 MG/ML INJ IVP PRN (01:57)
[2017-11-01] MEDS ORDERED: ONDANSETRON 4 MG/2 ML VIAL IVP PRN (01:57)
--- NOTE | 2017-11-01 01:57 | POSTANESTH ---
Post Anesthetic Evaluation Cardiovascular Status: Normal, Stable Respiratory Status: Normal, Stable Level of Consciousness/Mental Status: Can Participate in Eval, Other, See Comment (upon arrival to PACU, patient became unresponsive and demonstrated marked shaking with eyes rolling up, consistent with seizure activity likely 2/ 2 eclampsia. Her condition resolved within 5-10 minutes, vital signs stable throughout. Magnesium and ativan IV were administered with subsequent improvement.) Pain Control: Adequate, Prn Tx Ordered Nausea/Vomiting Control: Adequate, Prn Tx Ordered Complications Possibly Related to Anesthesia: None Noted
[2017-11-01] MEDS ORDERED: DOCUSATE SODIUM 100 MG CAP PO PRN (02:17)
[2017-11-01] MEDS ORDERED: ACETAMINOPHEN 325 MG TAB PO PRN (02:17)
[2017-11-01] MEDS ORDERED: POLYETHYLENE GLYCOL 3350 17 GM PKT PO PRN (02:20)
[2017-11-01] MEDS ORDERED: BISACODYL 10 MG SUPP PR PRN (02:20)
[2017-11-01] MEDS ORDERED: MAGNESIUM HYDROXIDE 30 ML UDCUP PO PRN (02:20)
[2017-11-01] MEDS ORDERED: LACTULOSE 20 GM/30 ML UDCUP PO PRN (02:20)
[2017-11-01] MEDS ORDERED: MAGNESIUM SULF 4 GM/WATER 100 ML BAG IV ONE (02:23)
[2017-11-01] MEDS ORDERED: LORazepam 2 MG/ML INJ ONE (02:27)
--- NOTE | 2017-11-01 02:33 | OBDEL ---
Info Type: Primary Presentation at Delivery: Vertex L&D Analgesia/Anesthesia Type: Epidural GBS+: Yes Antibiotic Used for + GBS: Ampicillin Intrapartum Medications: Generic Name Dose Route Start Last Admin Trade Name Mikey PRN Reason Stop Dose Admin Acetaminophen 500 - 1,000 mg 10/30/17 21:55 10/31/17 03:31 Tylenol PO 04/28/18 21:54 500 mg Q6 PRN Administration Pain, Mild/Fever, Can Take PO Lactated Ringer's 1,000 mls @ 125 mls/hr 10/30/17 22:30 10/31/17 16:20 Lr IV 04/28/18 22:29 1,000 mls CONT GEORGIE Administration Oxytocin/Lactated Ringer's 500 mls @ 0 mls/hr 10/31/17 11:00 10/31/17 11:20 Pitocin 30 Units/Lr (Premix) IV 04/29/18 10:59 500 mls CONT GEORGIE Administration Protocol Per Protocol Ampicillin Sodium 1 gm/ 15 mls @ 60 mls/hr 10/31/17 14:48 10/31/17 20:01 Sterile Water IV 11/30/17 14:47 15 mls Q4H GEORGIE Administration Protocol Ondansetron HCl 4 mg 10/30/17 21:55 10/30/17 22:33 Zofran IVP 04/28/18 21:54 4 mg Q6 PRN Administration Nausea/Vomiting, Can't Take PO Discontinued Medications Generic Name Dose Route Start Last Admin Trade Name Mikey PRN Reason Stop Dose Admin Lactated Ringer's 1,000 mls @ 0 mls/hr 10/30/17 22:00 10/30/17 22:27 Lr IV 10/30/17 22:01 1,000 mls ONCE ONE Administration As Directed Ampicillin Sodium 2 gm/ 25 mls @ 100 mls/hr 10/31/17 10:47 10/31/17 12:00 Sterile Water IV 10/31/17 11:01 25 mls ONCE ONE Administration Protocol Morphine Sulfate 10 mg 10/31/17 00:15 10/31/17 00:34 Morphine IM 10/31/17 00:16 10 mg ONCE ONE Administration Morphine Sulfate 5 mg 10/31/17 00:15 10/31/17 00:31 Morphine IVP 10/31/17 00:16 5 mg ONCE ONE Administration Promethazine HCl 12.5 mg 10/31/17 00:15 10/31/17 00:35 Phenergan IM 10/31/17 00:16 12.5 mg ONCE ONE Administration - Infant Care Provider Wet End Supervisor/DIRECTOR OF KNOWLEDGE MANAGEMENT: Connie Mclaughlin - Hospital Course Intrapartum: 10/31/17 15:27 Pt is now comfortable with her epidural. 10/31/17 17:51 Pt continues to be comfortable with her epidural. She denies pelvic pressure. 10/31/17 19:51 Pt is beginning to feel pelvic pressure. 10/31/17 21:14 Pt is feeling increased pelvic pressure. 10/31/17 22:18 Pt continues to feel pelvic pressure. She is now lying on her side after hands and knees. 10/31/17 23:56 Pt remains comfortable, feeling some pelvic pressure. She has tried multiple position changes. Indications for Delivery: Spontaneous Labor Vaginal Delivery - Labor and Delivery Onset of Contractions Date: 10/30/17 Onset of Contractions Time: 10:00 Amniotic Fluid Color: Meconium Stained Non-surgical Procedures: Amniotomy, IUPC Operative Report - Delivery Pre-op Diagnoses: IUP @ 40 4/7 weeks, arrest of dilation, necrotic left ovarian cyst Post-op Diagnoses: same History of Prior Section: No Number of Prior Sections: 0 Nulliparous Prior to Delivery: Yes Indications for Current Section: Arrest of Dilation Procedure: Unscheduled Surgeon: Susana Babcock Amplifier Mechanic: Maryse Martinez Anesthesiologist: Hugo Pastor Complications: Other (Specify) (necrotic left ovarian cyst, removed) Findings: normal uterus, tubes and right ovary, left ovary with necrotic cyst Specimen(s)/Path: Cyst IV Fluid (ml): 1,400 EBL: 800 Data YUN: 10/27/17 Gestational Age: 40 week(s) and 5 day(s) Son Delivery Date: 11/01/17 Delivery Time: 01:20 Sex of Infant: Female [place] Weight (gm): 3572.04 g Score (1 Min): 8 Score (5 Min): 9 ICD10 Worksheet Patient Problems: Problems Problem Status Onset Delivery by section of full-term infant Acute Normal labor Acute - ICD10 Problem Qualifiers (1) Normal labor (2) Delivery by section of full-term infant
[2017-11-01] MEDS ORDERED: MAGNESIUM SULF 20 GM/500 ML BAG IV ONE (02:46)
[2017-11-01] MEDS: Mag Sulf 500 ML IV SCH ×3 (03:00→23:40)
--- NOTE | 2017-11-01 03:09 | OBPP ---
Progress Note Assessment/Plan: Assessment: 32 y/o s/p LTCS secondary to arrest of descent now with seizure activity. Plan: Presumed eclamptic seizure activity now post c section. She never had the diagnosis of pre eclampsia by blood pressure criteria, and she had normal labs x 2. Her JUSTICE were transient and resolved with hydration and rest overnight on but recurred at the end of the c section and may have been a sign of the impending seizure activity. I discussed the events with her mother who was at the bedside. She reported that Lorelei had a similar event approximately 4 years ago soon after she immigrated from [place]. She said she was hospitalized for several days for a work up and never had another event and was never on medication. We will keep her on MgSo4 now with a 4 g bolus and 2 g/ hour for at least 24 hours. I will consult with Neurology in the am, because this is not a clear diagnosis of eclamptic seizure with normal BP and a possible episode of seizure in the past. 10/31/17 15:28 10/31/17 17:53 10/31/17 19:52 10/31/17 21:15 10/31/17 22:19 10/31/17 23:56 11/01/17 03:14 Subjective/ Course: 11/01/17 02:59 I was called to the recovery room to examine the patient because she was exhibiting tonic/ clonic behavior and was unresponsive. She had been drowsy during the surgery, but was appropriate and responsive. She complained of a JUSTICE toward the end of the procedure. When I examined her, she was exhibiting tonic/ clonic movements and her eyes were rolled back into her head, she didn't respond to verbal stimuli, or sternal rub. We immediately began and MgSo4 bolus of 4 mg and gave 1 mg of Ativan. After approximately 2 minutes she stopped and was able to open her eyes and follow simple commands. She was appropriate to time and place and could follow movements with her eyes and squeeze her hands. Objective: 10/31/17 11:30 10/31/17 11:30 Patient ABO/Rh O POSITIVE 10/30/17 22:22 Uric Acid 5.3 mg/dL (2.5-6.8) 10/31/17 11:30 Total Bilirubin 0.8 mg/dL (0.1-1.4) 10/31/17 11:30 Conjugated Bilirubin 0.4 mg/dL (0.0-0.5) 10/31/17 11:30 Unconjugated Bilirubin 0.4 mg/dL (0.0-1.1) 10/31/17 11:30 AST 17 IU/L (14-46) 10/31/17 11:30 ALT 21 IU/L (9-52) 10/31/17 11:30 Lactate Dehydrogenase 400 IU/L (313-618) 10/31/17 11:30 BP 100/68, 117/64. 98/66 Temp 37.2 HR 81 RR 26 Physical Exam - Physical Exam General Appearance: WD/WN, other (was unresponsive during episode, now drowsy but arousable) Neck: non-tender, full range of motion, supple Respiratory: chest non-tender, lungs clear, normal breath sounds Cardiac/Chest: regular rate, rhythm Abdomen: dressing (c/d/i), other (UFF U-1) Extremities: swelling (no), Patrice's sign (neg) DTR- Lower Extremities: Knee (R): 2+, Knee (L): 2+
[2017-11-01] MEDS ORDERED: CALCIUM GLUC 10% 1 GM/10 ML VIAL IVP PRN (03:40)
[2017-11-01] MEDS ORDERED: MAGNESIUM SULF 4 GM/WATER 100 ML IV ONE (03:40)
[2017-11-01] MEDS ORDERED: LORazepam 2 MG/ML INJ IVP ONE (03:41)
--- NOTE | 2017-11-01 06:41 | GOP ---
[f rep st] OPERATIVE REPORT DATE OF OPERATION: 11/01/2017 SURGEON: Susana Babcock MD PILE DRIVING SETTER: Maryse Martinez, certified nurse front office medical assistant. ANESTHESIA: Epidural anesthesia. ANESTHESIOLOGIST: Hugo Pastor MD. PREOPERATIVE DIAGNOSIS: Intrauterine at 40 and 4/7 weeks' gestation, in active labor with arrest of dilation in occiput posterior presentation, and necrotic left ovarian cyst. POSTOPERATIVE DIAGNOSIS: Intrauterine at 40 and 4/7 weeks' gestation , in active labor with arrest of dilation in occiput posterior presentation, and necrotic left ovarian cyst. PROCEDURE PERFORMED: Primary lower transverse section and left ovarian cystectomy. FINDINGS: Viable female, Apgars of 8 and 9, weight of 7 pounds 14 ounces. ESTIMATED BLOOD LOSS: 800 cc. INDICATIONS: The patient is a 32-year-old 3, para 0-0-2-0 with a last menstrual period of 01/20/2017, and an EDC of 10/27/2017 which was confirmed by a first trimester ultrasound. She initially presented to labor and delivery on the evening of the , complaining of headache, severe nausea, vomiting, and abdominal pain, uterine contractions. Upon evaluation, her blood pressures were normal. Her PIH labs were normal. Cervix was 1 cm, but she had proteinuria. The patient was kept for observation, IV hydration and morphine sleep. All of her labs remained normal. On the morning of the , her cervix was checked and she had progressed to 3, 90%, -2, and decision was made to admit her for active labor augmentation, suspect possible preeclampsia. The patient received Pitocin per protocol, artificial rupture of membranes, an epidural, and she progressed to 8 cm, 90%, +1 station. She remained at that dilation for greater than 3 hours. An IUPC was placed. We tried multiple position changes, hands and knees, left and right tilt, sitting straight upright to try to help the baby rotate and help get her fully dilated. She had adequate labor documented by MU units and were not able to get the cervix dilated past 8-9 cm, and so therefore the diagnosis of arrest of dilation was made, and the decision was made to proceed with lower transverse section. Patient was consented for the procedure. She understood the risks and benefits, the risks including bleeding, infection, damage to internal organs , uterus, tubes, ovaries, bowel, bladder, nerves, blood vessels, ureters, risk of injury, risk of blood transfusion, hysterectomy, and . She understood these risks and benefits, agreed to proceed. DESCRIPTION OF PROCEDURE: The patient was taken to the operating room where her epidural was dosed and found to be adequate. She was prepped and draped in the dorsal lithotomy position with a leftward tilt, and a Vázquez catheter had previously been placed in her bladder. After adequate anesthesia was documented , a WHO time-out was performed. A transverse skin incision was made with the scalpel, and the incision was carried down to the underlying layer of fascia with the Bovie. Fascia was incised in the midline. Fascial incision was extended laterally with Alexander scissors. Superior aspect of the fascial incision was grasped with Randall clamps, elevated, and the rectus muscles were dissected off sharply. Inferior aspect of the fascial incision was grasped with Randall clamps, elevated, and the rectus muscles were dissected off sharply. Rectus muscles were in the midline. Peritoneum was entered bluntly. Peritoneal incision was extended superiorly and inferiorly with good visualization of the bladder. Bladder blade was inserted. The vesicouterine peritoneum was grasped with the pickups and entered sharply with the Metzenbaum scissors. The incision was extended laterally, and bladder flap was created digitally. Bladder blade was reinserted and the uterus was incised with a knife. There was thick meconium upon entry of the uterine cavity. The baby was in direct occiput posterior presentation, was delivered atraumatically, and we delayed cord clamping for 1 minute. The cord was clamped and cut. The was handed off to the waiting nurse practitioners. Cord bloods were sent. The placenta was removed manually. The uterus was exteriorized, cleared of all clots and debris. The uterine incision was repaired with 0 Vicryl in a running locked fashion. Second imbricating layer of suture was performed with 0 Vicryl and good hemostasis was assured. Attention was then turned to the left ovary. There was a 2 x 3 cm cyst on the superior portion of the left ovary that was black and looked hemorrhagic and possibly necrotic, and so I made the decision to remove the cyst, placed a Loida clamp at the base of the cyst, removed it sharply with the knife, and suture ligated the area with 2-0 Vicryl and good hemostasis was assured. The uterus is returned to the abdomen. Gutters were cleared of all clots and debris. Reinspection of the uterine incision again assured hemostasis. The rectus muscles were approximated with 2-0 Vicryl in inverted mattress fashion. The fascia was closed with #1 Vicryl. The subcutaneous layer was closed with 2- 0 Vicryl and the skin was closed with 4-0 Vicryl. The patient tolerated the procedure well. Sponge, lap, needle, and instrument counts were correct x2. Patient went to the recovery room in good condition. FLUID REPLACEMENT: 1400 cc. URINE OUTPUT: 100 cc. /[id number]/MODL MTDD
--- NOTE | 2017-11-01 06:49 | PDMN ---
Medical Necessity Medical necessity: C/M review: Patient meets INPT criteria per [facility] delivery: viable female . MD anticipates > 2 MN LOS for eval and TX of above.
--- NOTE | 2017-11-01 08:04 | POSTANESTH ---
Post Anesthetic Evaluation Cardiovascular Status: Normal, Stable Respiratory Status: Normal, Stable Level of Consciousness/Mental Status: Can Participate in Eval, Alert and Oriented (6hrs s/p C/S. No further seizure activity since starting Mg infusion. Mental status improved back to normal. Neurology to evaluate for possible other etiology given atypical presentation of eclampsia (no elevated BP).) Pain Control: Adequate, Prn Tx Ordered Nausea/Vomiting Control: Adequate, Prn Tx Ordered Complications Possibly Related to Anesthesia: None Noted (Epidural catheter removed at end of C/S, tip intact. Patient denies headaches, weakness, paresthesias. While LA toxicity is on differential, this would be low on the list in the setting of normal cardiopulmonary status throughout, absence of other signs of LA toxicity, time course of symptoms occurring approximately 2 hours after last administration of LA, and negative aspiration for CSF prior to administration of LA. Pt's remote seizure history (4 years ago, one episode - according to mother) and proteinuria/occasional headaches, and improvement with magnesium/ativan make these more likely causes of her seizure.)
[2017-11-01] MEDS: LR 1,000 ML IV SCH (08:30)
[2017-11-01] MEDS: SENNOSIDES/DOCUSATE SODIUM TAB PO SCH (08:30)
[2017-11-01] MEDS: KETOROLAC 30 MG/1 ML SDV IVP PRN ×2 (08:31→14:55)
[2017-11-01 09:07] LABS: PLATELET COUNT 154 10^3/uL (150-400)
--- NOTE | 2017-11-01 10:40 | OBPP ---
Progress Note Assessment/Plan: Assessment: 32 y/o s/p LTCS secondary to arrest of descent with pp seizure-like activity PPD # 0 Plan: Pt is stable on MgSO4 - diuresing well, 1+ reflexes BPs stable; PIH labs stable; unsure if eclampsia Will get Neuro consult - spoke with Dr. Skip Melgoza who will see the pt and recommended starting with MRI brain w/wo contrast as well as MRA head Will have to pump and dump with contrast Cont routine post-op care Will check Mg level and cont to monitor closely 11/01/17 10:42 Subjective/ Course: 11/01/17 02:59 I was called to the recovery room to examine the patient because she was exhibiting tonic/ clonic behavior and was unresponsive. She had been drowsy during the surgery, but was appropriate and responsive. She complained of a JUSTICE toward the end of the procedure. When I examined her, she was exhibiting tonic/ clonic movements and her eyes were rolled back into her head, she didn't respond to verbal stimuli, or sternal rub. We immediately began and MgSo4 bolus of 4 mg and gave 1 mg of Ativan. After approximately 2 minutes she stopped and was able to open her eyes and follow simple commands. She was appropriate to time and place and could follow movements with her eyes and squeeze her hands. 11/01/17 10:53 Pt seen and examined. She is c/o JUSTICE this morning right now, and is also feeling dizzy. Unsure about any visual changes at this time. Pain is well controlled with Toradol. Denies any RUQ or epigastric pain. She has not been up OOB, tolerated juice, carlos in place-just emptied for 350 cc. Denies any f/c/n/v/CP or SOB. with good colostrum. Objective: 11/01/17 08:55 11/01/17 08:55 Patient ABO/Rh O POSITIVE 10/30/17 22:22 Uric Acid 5.5 mg/dL (2.5-6.8) 11/01/17 08:55 Total Bilirubin 0.9 mg/dL (0.1-1.4) 11/01/17 08:55 Conjugated Bilirubin 0.4 mg/dL (0.0-0.5) 11/01/17 08:55 Unconjugated Bilirubin 0.5 mg/dL (0.0-1.1) 11/01/17 08:55 AST 24 IU/L (14-46) 11/01/17 08:55 ALT 18 IU/L (9-52) 11/01/17 08:55 Lactate Dehydrogenase 737 IU/L (313-618) H 11/01/17 08:55 Temp Pulse Resp BP Pulse Ox 37.2 C 109 H 16 115/62 99 11/01/17 08:00 11/01/17 08:00 11/01/17 08:00 11/01/17 08:00 11/01/17 08:15 Uterine Position/Fundal Height: Umbilicus -1 Uterine Tone: Firm Physical Exam - Physical Exam Respiratory: lungs clear, normal breath sounds Cardiac/Chest: regular rate, rhythm Abdomen: hypoactive bowel sounds, non-tender (appropriate tenderness), soft, incision (C/D/I with dressing in place), dressing (C/D/I with one area noted about quarter-size of blood) Extremities: non-tender, normal inspection (with SCDs in place) DTR- Lower Extremities: Knee (R): 1+, Knee (L): 1+ Skin: normal color, warm/dry Neuro/Psych: alert, normal mood/affect, oriented x 3
--- NOTE | 2017-11-01 12:52 | NEUROPROG ---
Assessment: HOSPITAL NEUROLOGY CONSULT REQUESTING: Alba Garsia DO REASON: seizure HPI: 32 year old right-handed woman originally from [place] who is here in hospital on L&D for delivery of her first child. She needed to have a overnight due to failure to progress. Prior to the intervention, she had been complaining of some headache that improved with rest and hydration. Headache seemed to return during the . In the recovery room early this AM, she had an event concerning for a seizure. I have varying reports of what happened. Records indicate the patient's eyes rolled upward and she had tonic- clonic activity. Nursing indicates eyes rolling up and then fine shaking of the extremities, almost like shivering. She was unresponsive to verbal stim and sternal rub. In any event, there was no tongue bite - unsure about incontinence. These movements lasted 2 mins. Patient then regained awareness and was appropriately oriented and following commands - seemingly without post- ictal confusion. Eclampsia evaluation showed only elevation in her protein: creatinine ratio. Her SBPs have only reached a maximum of 142 on one measure. She was given lorazepam and started on magnesium infusion protocol for suspected eclamptic seizure. She has not had any recurrent events. There is some report the patient had an event in 2013 when she first arrived in the [place] that was suspicious for a seizure. Patient tells me she was seen by a doctor and had an MRI and was told the event was not a seizure. She has no epilepsy risk factors including TBI, intracranial instrumentation, DEPENDENCY CASE MANAGER infection, collagen vascular disease. She reports normal personal and developmental history. ROS: As per the HPI, otherwise a complete 12 point ROS was performed and is negative ALLERGIES AND MEDS: As recorded in the EMR - reviewed and reconciled PFSH: As per the intake H&P by Dr. Babcock from 10/31 EXAM: VS reviewed in EMR GEN: WDWN laying in NAD HEENT: NCAT, sclera anicteric, conjunctiva not injected, MMM, oropharynx clear, no scalp tenderness, no tongue laceration NECK: supple, nontender, no meningismus CV: RRR s1 s2 wo m/r/c/g. Carotid pulses 2+ wo bruit NEURO: MS:a bit sedate but awake, oriented to all spheres. Speech nondysarthric. No language disturbance. Follows commands. Attends to both sides. Recent/remote memory grossly intact. Mood depressed. Adequate fund of knowledge. CN: pupils 4mm round and reactive. Intolerant of fundoscopy. VFF. Primary gaze centered. Full ocular motility. Facial sensation preserved. Face symmetric. Hearing grossly intact to finger rub. Palatoglossal movements intact. Shoulder shrug and head turn strong. MOTOR: normal bulk/tone. No adventitial movements. Giveway weakness and submax effort in all muscle groups of L>R extremities SENSORY: intact to all modalities throughout. No extinction. COORD: no ataxia FN/HS. Sunil preserved. REFLEX: plantars down. No clonus. DTRS absent. GAIT: deferred DATA REVIEW: Labs reviewed in EMR PERSONALLY INTERPRETED RESULTS AND DATA: nil IMPRESSION AND RECOMMENDATIONS: // POSSIBLE SEIZURE VS. NONEPILEPTIC EVENT Patient with an event of extremity shaking, eyes rolling up and unresponsiveness. She did not seem to have any tongue laceration or post-ictal state. In the event this was a seizure, it would not be unreasonable to treat for eclampsia given JUSTICE and some modest lab abnormalities, namely elevated P:C ratio. She will remain on eclampsia treatment protocol per WRAPPING MACHINE TENDER. Will get MRI brain wow and MRA/MRV of head given her headache and possibility of seizure to assess for structural/vascular lesions that may be culprit in seizure. She has a nonfocal exam and no epilepsy risk factors - prior reported event unclear - no records of this in [facility]. Will hold on anti-seizure medications for now. Exercise seizure safety precautions. With a spell of impaired awareness, she would not be allowed to drive for a period of 90 days following the event. Safety precautions should be exercised including not climbing heights, not swimming/tub bathing alone, not operating heavy machinery, and not performing any activity that could put herself or others in harm's way due to another spell of impaired awareness. I will continue to follow for further recommendation pending imaging results. Objective: Vital Signs Temp Pulse Resp BP Pulse Ox 37.2 C 109 H 16 115/62 99 11/01/17 08:00 11/01/17 08:00 11/01/17 08:00 11/01/17 08:00 11/01/17 08:15 Laboratory Results 11/01/17 08:55 11/01/17 08:55 Allergies/Adverse Reactions: No Known Allergies Allergy (Unverified 05/12/17 18:06)
[2017-11-01] MEDS ORDERED: GADOBUTROL 10 ML VIAL IVP ONE (13:11)
[2017-11-01] MEDS: ACETAMINOPHEN 500 MG TAB PO PRN (14:58)
--- NOTE | 2017-11-01 16:05 | OBPP ---
Progress Note Assessment/Plan: Assessment: 32 y/o s/p LTCS secondary to AOD with pp seizure-like activity PPD # 0 Plan: Pt is stable on MgSO4; UO is 100 cc/hr; cont x 24 hr pp (stop at 0230 on 11/02) Mg level at 5.5 mg/dl is therapeutic BPs remain stable; PIH labs stable, will repeat in am 11/02 Appreciate neuro consult; both MRI brain w/wo contrast as well as MRA head are negative and no seizure meds recommended at this time Cont routine post-op care Will cont to monitor closely 11/01/17 16:01 Subjective/ Course: 11/01/17 02:59 I was called to the recovery room to examine the patient because she was exhibiting tonic/ clonic behavior and was unresponsive. She had been drowsy during the surgery, but was appropriate and responsive. She complained of a JUSTICE toward the end of the procedure. When I examined her, she was exhibiting tonic/ clonic movements and her eyes were rolled back into her head, she didn't respond to verbal stimuli, or sternal rub. We immediately began and MgSo4 bolus of 4 mg and gave 1 mg of Ativan. After approximately 2 minutes she stopped and was able to open her eyes and follow simple commands. She was appropriate to time and place and could follow movements with her eyes and squeeze her hands. 11/01/17 10:53 Pt seen and examined. She is c/o JUSTICE this morning right now, and is also feeling dizzy. Unsure about any visual changes at this time. Pain is well controlled with Toradol. Denies any RUQ or epigastric pain. She has not been up OOB, tolerated juice, carlos in place-just emptied for 350 cc. Denies any f/c/n/v/CP or SOB. with good colostrum. 11/01/17 16:05 Pt seen and examined. She was feeling dizzy in MRI machine, but better now. JUSTICE is improved as well. Denies any CP or SOB. Pain well controlled. states okay to BF after receiving IV contrast. Objective: 11/01/17 08:55 11/01/17 08:55 Patient ABO/Rh O POSITIVE 10/30/17 22:22 Uric Acid 5.5 mg/dL (2.5-6.8) 11/01/17 08:55 Total Bilirubin 0.9 mg/dL (0.1-1.4) 11/01/17 08:55 Conjugated Bilirubin 0.4 mg/dL (0.0-0.5) 11/01/17 08:55 Unconjugated Bilirubin 0.5 mg/dL (0.0-1.1) 11/01/17 08:55 AST 24 IU/L (14-46) 11/01/17 08:55 ALT 18 IU/L (9-52) 11/01/17 08:55 Lactate Dehydrogenase 737 IU/L (313-618) H 11/01/17 08:55 Temp Pulse Resp BP Pulse Ox 37.2 C 109 H 16 115/62 99 11/01/17 08:00 11/01/17 08:00 11/01/17 08:00 11/01/17 08:00 11/01/17 08:15 Uterine Position/Fundal Height: Umbilicus -1 Uterine Tone: Firm Physical Exam - Physical Exam Respiratory: lungs clear, normal breath sounds Cardiac/Chest: regular rate, rhythm, tachycardia Abdomen: normal bowel sounds, non-tender, soft Extremities: non-tender, normal inspection (with SCDs in place) DTR- Lower Extremities: Knee (R): 1+, Knee (L): 1+ Skin: normal color, warm/dry Neuro/Psych: alert, normal mood/affect, oriented x 3
[2017-11-01] MEDS: AMPICILLIN SODIUM 1 GM in STERILE WATER INJ 15 ML IV SCH ×2 (19:24→19:25)
[2017-11-01] MEDS: IBUPROFEN 600 MG TAB PO PRN (20:46)
[2017-11-02] MEDS: ACETAMINOPHEN 500 MG TAB PO PRN (00:57)
[2017-11-02] MEDS: OXYCODONE/APAP 5/325 TAB PO PRN ×3 (02:42→20:45)
[2017-11-02] MEDS: SENNOSIDES/DOCUSATE SODIUM TAB PO SCH ×3 (02:43→20:45)
[2017-11-02 06:22] LABS: PLATELET COUNT 143 10^3/uL (150-400)
[2017-11-02] MEDS: IBUPROFEN 600 MG TAB PO PRN ×3 (08:15→20:45)
--- NOTE | 2017-11-02 09:33 | NEUROPROG ---
Assessment: BACKGROUND: 11/01 32 year old right-handed woman originally from [place] who is here in hospital on L&D for delivery of her first child. She needed to have a overnight due to failure to progress. Prior to the intervention, she had been complaining of some headache that improved with rest and hydration. Headache seemed to return during the . In the recovery room early this AM, she had an event concerning for a seizure. I have varying reports of what happened. Records indicate the patient's eyes rolled upward and she had tonic- clonic activity. Nursing indicates eyes rolling up and then fine shaking of the extremities, almost like shivering. She was unresponsive to verbal stim and sternal rub. In any event, there was no tongue bite - unsure about incontinence. These movements lasted 2 mins. Patient then regained awareness and was appropriately oriented and following commands - seemingly without post- ictal confusion. Eclampsia evaluation showed only elevation in her protein: creatinine ratio. Her SBPs have only reached a maximum of 142 on one measure. She was given lorazepam and started on magnesium infusion protocol for suspected eclamptic seizure. She has not had any recurrent events. There is some report the patient had an event in 2013 when she first arrived in the [place] that was suspicious for a seizure. Patient tells me she was seen by a doctor and had an MRI and was told the event was not a seizure. She has no epilepsy risk factors including TBI, intracranial instrumentation, PORCELAIN ENAMEL SPRAYER infection, collagen vascular disease. She reports normal personal and developmental history. INTERVAL HISTORY: 11/02: Doing well, feeling better overall with less fatigue. No events overnight. No recurrent spells. EXAM: VS reviewed in EMR GEN: WDWN sitting in NAD MS: awake, alert, oriented to all spheres. Speech nondysarthric. No language disturbance. Follows commands. Attends to both sides. Recent/remote memory grossly intact. Mood depressed. Adequate fund of knowledge. CN: pupils 4mm round and reactive. VFF. Primary gaze centered. Full ocular motility. Facial sensation preserved. Face symmetric. Hearing grossly intact to finger rub. Palatoglossal movements intact. Shoulder shrug and head turn strong. MOTOR: normal bulk/tone. No adventitial movements. Full power throughout. SENSORY: intact to all modalities throughout. No extinction. COORD: no ataxia FN/HS. Sunil preserved. REFLEX: plantars down. No clonus. DTRS absent. GAIT: deferred DATA REVIEW: Labs reviewed in EMR PERSONALLY INTERPRETED RESULTS AND DATA: MRI brain wow - normal MRV head - normal IMPRESSION AND RECOMMENDATIONS: // POSSIBLE SEIZURE VS. NONEPILEPTIC EVENT Patient with an event of extremity shaking, eyes rolling up and unresponsiveness. She did not seem to have any tongue laceration or post-ictal state. In the event this was a seizure, it would not be unreasonable to treat for eclampsia given JUSTICE and some modest lab abnormalities, namely elevated P:C ratio. She will remain on eclampsia treatment protocol per PSYCH SOCIAL WORKER. She has a nonfocal exam and no epilepsy risk factors - prior reported event unclear - no records of this in [facility]. Will hold on anti-seizure medications for now. Exercise seizure safety precautions. With a spell of impaired awareness, she would not be allowed to drive for a period of 90 days following the event. Safety precautions should be exercised including not climbing heights, not swimming/tub bathing alone, not operating heavy machinery, and not performing any activity that could put herself or others in harm's way due to another spell of impaired awareness. She can followup with me after discharge. Will get outpatient EEG at that time. Will sign off. Recall PRN. Objective: Vital Signs Temp Pulse Resp BP Pulse Ox 37.2 C 109 H 16 115/62 99 11/01/17 08:00 11/01/17 08:00 11/01/17 08:00 11/01/17 08:00 11/01/17 08:15 Laboratory Results 11/02/17 06:00 11/01/17 08:55 11/01/17 11/02/17 11/03/17 05:59 05:59 05:59 Output Total 750 Balance -750 Allergies/Adverse Reactions: No Known Allergies Allergy (Unverified 05/12/17 18:06)
--- NOTE | 2017-11-02 09:58 | OBPP ---
Progress Note Assessment/Plan: Assessment: 32 y/o POD #2 s/p LTCS secondary to arrest of dilation and eclamptic seizure event Plan: She is stable now s/p MgSo4, repeat PIH labs today stable except for a mild drop in plt count to 143. BP remain normal. Will monitor closely now off MgSo4. Appreciate consult from Neurology and negative MRI is reassuring. Encourage ambulation, shower today will give an abdominal binder. Bowel protocol and continue routine POC. support. 10/31/17 15:28 10/31/17 17:53 10/31/17 19:52 10/31/17 21:15 10/31/17 22:19 10/31/17 23:56 11/01/17 03:14 11/02/17 09:59 Subjective/ Course: 11/01/17 02:59 I was called to the recovery room to examine the patient because she was exhibiting tonic/ clonic behavior and was unresponsive. She had been drowsy during the surgery, but was appropriate and responsive. She complained of a JUSTICE toward the end of the procedure. When I examined her, she was exhibiting tonic/ clonic movements and her eyes were rolled back into her head, she didn't respond to verbal stimuli, or sternal rub. We immediately began and MgSo4 bolus of 4 mg and gave 1 mg of Ativan. After approximately 2 minutes she stopped and was able to open her eyes and follow simple commands. She was appropriate to time and place and could follow movements with her eyes and squeeze her hands. 11/01/17 10:53 Pt seen and examined. She is c/o JUSTICE this morning right now, and is also feeling dizzy. Unsure about any visual changes at this time. Pain is well controlled with Toradol. Denies any RUQ or epigastric pain. She has not been up OOB, tolerated juice, carlos in place-just emptied for 350 cc. Denies any f/c/n/v/CP or SOB. with good colostrum. 11/01/17 16:05 Pt seen and examined. She was feeling dizzy in MRI machine, but better now. JUSTICE is improved as well. Denies any CP or SOB. Pain well controlled. states okay to BF after receiving IV contrast. 11/02/17 09:55 Pt is doing much better this am. She feels better off MgSo4. She reports transient JUSTICE, and only one episode of blurred vision last night when she was still on MgSo4. She has ambulated and voided without difficulty and has min lochia. She reports good pain control on po meds, and is tolerating reg diet. Breast feeding is going well and baby is doing well. Objective: 11/02/17 06:00 11/01/17 08:55 Patient ABO/Rh O POSITIVE 10/30/17 22:22 Uric Acid 6.3 mg/dL (2.5-6.8) 11/02/17 06:00 Total Bilirubin 0.9 mg/dL (0.1-1.4) 11/01/17 08:55 Conjugated Bilirubin 0.4 mg/dL (0.0-0.5) 11/01/17 08:55 Unconjugated Bilirubin 0.5 mg/dL (0.0-1.1) 11/01/17 08:55 AST 21 IU/L (14-46) 11/02/17 06:00 ALT 24 IU/L (9-52) 11/02/17 06:00 Lactate Dehydrogenase 758 IU/L (313-618) H 11/02/17 06:00 Temp Pulse Resp BP Pulse Ox 37.2 C 109 H 16 115/62 99 11/01/17 08:00 11/01/17 08:00 11/01/17 08:00 11/01/17 08:00 11/01/17 08:15 Uterine Position/Fundal Height: Umbilicus -2 Uterine Tone: Firm Physical Exam - Physical Exam General Appearance: alert, no apparent distress Neck: non-tender, full range of motion, supple Respiratory: chest non-tender, lungs clear, normal breath sounds Cardiac/Chest: regular rate, rhythm Abdomen: normal bowel sounds, incision (c/d/i) Extremities: swelling (1+), Patrice's sign (neg) DTR- Lower Extremities: Knee (R): 2+, Knee (L): 2+
[2017-11-02] MEDS: HYDROCODONE/APAP 5/325 TAB PO PRN ×2 (13:16→17:01)
[2017-11-03] MEDS: OXYCODONE/APAP 5/325 TAB PO PRN ×4 (00:54→17:25)
[2017-11-03] MEDS: IBUPROFEN 600 MG TAB PO PRN ×3 (06:06→21:16)
[2017-11-03] MEDS: IRON POLYSAC/IRON HEME 28 MG TAB PO SCH ×2 (09:55→21:16)
[2017-11-03] MEDS: SIMETHICONE 80 MG TAB CHEW PO PRN (09:55)
[2017-11-03] MEDS: SENNOSIDES/DOCUSATE SODIUM TAB PO SCH ×2 (09:55→21:16)
--- NOTE | 2017-11-03 11:13 | OBPP ---
Progress Note Assessment/Plan: Assessment: 32 y/o POD #3 s/p LTCS secondary to arrest of dilation and eclamptic seizure event Stable post magnesium d/c'd at 0300 11/02 All BPs WNL Plan: Continue routine PP care Encourage ambulation/increased activity Continue bowel regimen Oral pain meds PRN Plan discharge tomorrow 11/03/17 14:59 11/03/17 17:34 Subjective/ Course: 11/01/17 02:59 I was called to the recovery room to examine the patient because she was exhibiting tonic/ clonic behavior and was unresponsive. She had been drowsy during the surgery, but was appropriate and responsive. She complained of a JUSTICE toward the end of the procedure. When I examined her, she was exhibiting tonic/ clonic movements and her eyes were rolled back into her head, she didn't respond to verbal stimuli, or sternal rub. We immediately began and MgSo4 bolus of 4 mg and gave 1 mg of Ativan. After approximately 2 minutes she stopped and was able to open her eyes and follow simple commands. She was appropriate to time and place and could follow movements with her eyes and squeeze her hands. 11/01/17 10:53 Pt seen and examined. She is c/o JUSTICE this morning right now, and is also feeling dizzy. Unsure about any visual changes at this time. Pain is well controlled with Toradol. Denies any RUQ or epigastric pain. She has not been up OOB, tolerated juice, carlos in place-just emptied for 350 cc. Denies any f/c/n/v/CP or SOB. with good colostrum. 11/01/17 16:05 Pt seen and examined. She was feeling dizzy in MRI machine, but better now. JUSTICE is improved as well. Denies any CP or SOB. Pain well controlled. states okay to BF after receiving IV contrast. 11/02/17 09:55 Pt is doing much better this am. She feels better off MgSo4. She reports transient JUSTICE, and only one episode of blurred vision last night when she was still on MgSo4. She has ambulated and voided without difficulty and has min lochia. She reports good pain control on po meds, and is tolerating reg diet. Breast feeding is going well and baby is doing well. 11/03/17 14:42 Lorelei is doing well this AM. She is tolerating regular diet, ambulated in [place] yesterday several times, minimal lochia, voiding and pain well controlled with oral pain meds. She is passing gas but no BM since surgery. Reports mild h/a this am - denies visual changes, increased edema or epigastric pain. Breast feeding going well. Objective: 11/02/17 06:00 11/01/17 08:55 Patient ABO/Rh O POSITIVE 10/30/17 22:22 Uric Acid 6.3 mg/dL (2.5-6.8) 11/02/17 06:00 Total Bilirubin 0.9 mg/dL (0.1-1.4) 11/01/17 08:55 Conjugated Bilirubin 0.4 mg/dL (0.0-0.5) 11/01/17 08:55 Unconjugated Bilirubin 0.5 mg/dL (0.0-1.1) 11/01/17 08:55 AST 21 IU/L (14-46) 11/02/17 06:00 ALT 24 IU/L (9-52) 11/02/17 06:00 Lactate Dehydrogenase 758 IU/L (313-618) H 11/02/17 06:00 Temp Pulse Resp BP Pulse Ox 37.3 C 70 18 111/64 96 11/03/17 02:35 11/03/17 02:35 11/03/17 02:35 11/03/17 02:35 11/03/17 02:35 VSS Incision well approximated - steri strips in place Reflexes +2 Small amt lower ext edema Uterine Position/Fundal Height: Umbilicus -1 Uterine Tone: Firm Physical Exam - Physical Exam EENT: PERRL/EOMI Neck: non-tender Respiratory: chest non-tender, lungs clear, normal breath sounds Cardiac/Chest: regular rate, rhythm, edema (small) Abdomen: normal bowel sounds, incision (clean and dry,well approximated, steri strips in place) Extremities: normal range of motion Skin: normal color, warm/dry Neuro/Psych: no motor/sensory deficits, alert, normal mood/affect
[2017-11-04] MEDS: IBUPROFEN 600 MG TAB PO PRN ×4 (03:15→20:47)
[2017-11-04] MEDS: OXYCODONE/APAP 5/325 TAB PO PRN ×3 (05:00→09:54)
[2017-11-04] MEDS: SENNOSIDES/DOCUSATE SODIUM TAB PO SCH ×2 (08:52→20:47)
[2017-11-04] MEDS: IRON POLYSAC/IRON HEME 28 MG TAB PO SCH ×2 (08:53→20:48)
[2017-11-04] MEDS: SIMETHICONE 80 MG TAB CHEW PO PRN (08:53)
[2017-11-04 10:09] LABS: PLATELET COUNT 198 10^3/uL (150-400)
[2017-11-04] MEDS ORDERED: ONDANSETRON DISINTEGRATING 4 MG TAB PO PRN (11:55)
--- NOTE | 2017-11-04 12:03 | OBPP ---
Progress Note Assessment/Plan: Assessment: POD#3 - s/p primary C/S c/b post op seizure/ eclampsia / s/p 24 hours Magnesium sulfate. Has been doing well until nausea this morning. PIH labs repeated - stable. H/H low but stable. Plan: Will continue to observe today. Zofran for nausea, Tums for heartburn. Anticipate dc home tomorrow. Reshma Muhammad MD, FACOG 11/04/17 12:00 11/04/17 12:14 Subjective/ Course: 11/01/17 02:59 I was called to the recovery room to examine the patient because she was exhibiting tonic/ clonic behavior and was unresponsive. She had been drowsy during the surgery, but was appropriate and responsive. She complained of a JUSTICE toward the end of the procedure. When I examined her, she was exhibiting tonic/ clonic movements and her eyes were rolled back into her head, she didn't respond to verbal stimuli, or sternal rub. We immediately began and MgSo4 bolus of 4 mg and gave 1 mg of Ativan. After approximately 2 minutes she stopped and was able to open her eyes and follow simple commands. She was appropriate to time and place and could follow movements with her eyes and squeeze her hands. 11/01/17 10:53 Pt seen and examined. She is c/o JUSTICE this morning right now, and is also feeling dizzy. Unsure about any visual changes at this time. Pain is well controlled with Toradol. Denies any RUQ or epigastric pain. She has not been up OOB, tolerated juice, carlos in place-just emptied for 350 cc. Denies any f/c/n/v/CP or SOB. with good colostrum. 11/01/17 16:05 Pt seen and examined. She was feeling dizzy in MRI machine, but better now. JUSTICE is improved as well. Denies any CP or SOB. Pain well controlled. states okay to BF after receiving IV contrast. 11/02/17 09:55 Pt is doing much better this am. She feels better off MgSo4. She reports transient JUSTICE, and only one episode of blurred vision last night when she was still on MgSo4. She has ambulated and voided without difficulty and has min lochia. She reports good pain control on po meds, and is tolerating reg diet. Breast feeding is going well and baby is doing well. 11/03/17 14:42 Lorelei is doing well this AM. She is tolerating regular diet, ambulated in amado yesterday several times, minimal lochia, voiding and pain well controlled with oral pain meds. She is passing gas but no BM since surgery. Reports mild h/a this am - denies visual changes, increased edema or epigastric pain. Breast feeding going well. 11/04/17 12:11 Pt was doing well, until she started having nausea and vomiting 1-2 hours after taking Percocet on an empty stomach, with only one cracker. Is also having heartburn right now. NO chest pain. Currently no headache, though mentioned that to RN earlier this morning. Mod lochia. Ambulating and voiding without difficulty. + flatus. Currently no epigastric pain or RUQ pain. Objective: 11/04/17 09:53 11/04/17 09:53 Patient ABO/Rh O POSITIVE 10/30/17 22:22 Uric Acid 5.6 mg/dL (2.5-6.8) 11/04/17 09:53 Total Bilirubin 0.5 mg/dL (0.1-1.4) 11/04/17 09:53 Conjugated Bilirubin 0.2 mg/dL (0.0-0.5) 11/04/17 09:53 Unconjugated Bilirubin 0.3 mg/dL (0.0-1.1) 11/04/17 09:53 AST 19 IU/L (14-46) 11/04/17 09:53 ALT 21 IU/L (9-52) 11/04/17 09:53 Lactate Dehydrogenase 483 IU/L (313-618) 11/04/17 09:53 Temp Pulse Resp BP Pulse Ox 36.8 C 48 L 20 152/71 H 98 11/04/17 08:00 11/04/17 11:10 11/04/17 11:10 11/04/17 11:10 11/04/17 11:10 gen - pleasant female, holding an emesis container CV - RRR chest - CTAB abd - fundus firm at u-2, nontender ext - no calf tenderness, trace edema, 2+ DTRs and 1 beat clonus. Uterine Position/Fundal Height: Umbilicus -2 Uterine Tone: Firm
[2017-11-04] MEDS ORDERED: CALCIUM CARBONATE 500 MG CHEWABLE TAB PO ONE (12:06)
[2017-11-04] MEDS: CALCIUM CARBONATE 500 MG CHEWABLE TAB PO PRN ×2 (12:17→18:24)
[2017-11-04] MEDS: HYDROCODONE/APAP 5/325 TAB PO PRN ×3 (14:34→22:30)
[2017-11-05] MEDS: IBUPROFEN 600 MG TAB PO PRN ×2 (02:44→10:57)
[2017-11-05] MEDS: HYDROCODONE/APAP 5/325 TAB PO PRN ×2 (02:44→11:05)
[2017-11-05] MEDS: IRON POLYSAC/IRON HEME 28 MG TAB PO SCH (10:57)
[2017-11-05] MEDS: SENNOSIDES/DOCUSATE SODIUM TAB PO SCH (10:58)
[2017-11-05 11:25] VITALS: BP 149/80
--- NOTE | 2017-11-05 13:12 | ASMTCMCOM ---
CM Note CM Note Notes: RN asked SW to assist with finding a hand outside cutter for pt's that takes . Found [facility] part of [facility], ([address], ). Appt made for Monday 11/06 at 8:00. Info provided to pt and her mother. Date Signed: 11/05/2017 01:11 PM Electronically Signed By:Chelsea Pena LCSW
--- NOTE | 2017-11-05 13:34 | OBGCSDC ---
General Delivery Information - General Info : 3 Para: 1 Abortions: 2 Type: Primary L&D Analgesia/Anesthesia Type: Epidural Admission Date: 10/30/17 Labs: Patient ABO/Rh O POSITIVE 10/30/17 22:22 Hct 22.8 % (38.0-47.0) L 11/04/17 09:53 - Hospital Course Antepartum: 10/31/17 15:28 transfer @ 18 weeks, GBS + Intrapartum: 10/31/17 15:27 Pt is now comfortable with her epidural. 10/31/17 17:51 Pt continues to be comfortable with her epidural. She denies pelvic pressure. 10/31/17 19:51 Pt is beginning to feel pelvic pressure. 10/31/17 21:14 Pt is feeling increased pelvic pressure. 10/31/17 22:18 Pt continues to feel pelvic pressure. She is now lying on her side after hands and knees. 10/31/17 23:56 Pt remains comfortable, feeling some pelvic pressure. She has tried multiple position changes. : 11/01/17 02:59 I was called to the recovery room to examine the patient because she was exhibiting tonic/ clonic behavior and was unresponsive. She had been drowsy during the surgery, but was appropriate and responsive. She complained of a JUSTICE toward the end of the procedure. When I examined her, she was exhibiting tonic/ clonic movements and her eyes were rolled back into her head, she didn't respond to verbal stimuli, or sternal rub. We immediately began and MgSo4 bolus of 4 mg and gave 1 mg of Ativan. After approximately 2 minutes she stopped and was able to open her eyes and follow simple commands. She was appropriate to time and place and could follow movements with her eyes and squeeze her hands. 11/01/17 10:53 Pt seen and examined. She is c/o JUSTICE this morning right now, and is also feeling dizzy. Unsure about any visual changes at this time. Pain is well controlled with Toradol. Denies any RUQ or epigastric pain. She has not been up OOB, tolerated juice, carlos in place-just emptied for 350 cc. Denies any f/c/n/v/CP or SOB. with good colostrum. 11/01/17 16:05 Pt seen and examined. She was feeling dizzy in MRI machine, but better now. JUSTICE is improved as well. Denies any CP or SOB. Pain well controlled. states okay to BF after receiving IV contrast. 11/02/17 09:55 Pt is doing much better this am. She feels better off MgSo4. She reports transient JUSTICE, and only one episode of blurred vision last night when she was still on MgSo4. She has ambulated and voided without difficulty and has min lochia. She reports good pain control on po meds, and is tolerating reg diet. Breast feeding is going well and baby is doing well. 11/03/17 14:42 Lorelei is doing well this AM. She is tolerating regular diet, ambulated in amado yesterday several times, minimal lochia, voiding and pain well controlled with oral pain meds. She is passing gas but no BM since surgery. Reports mild h/a this am - denies visual changes, increased edema or epigastric pain. Breast feeding going well. 11/04/17 12:11 Pt was doing well, until she started having nausea and vomiting 1-2 hours after taking Percocet on an empty stomach, with only one cracker. Is also having heartburn right now. NO chest pain. Currently no headache, though mentioned that to RN earlier this morning. Mod lochia. Ambulating and voiding without difficulty. + flatus. Currently no epigastric pain or RUQ pain. 11/05/17 13:31 S) Pt doing well, reports min pain and bleeding. she is ambulating and voiding without difficulty. She is . She desires discharge home today. She denies any headaches, visual changes, epigastric pain. O) VSS, afebrile constitutional: WNWF, A&Ox3 HEENT: normocephalic, atraumatic, supple Heart: RRR, No murmur Chest: CTA-B Abdomen: Soft, nontender Incision: steri strips present, intact, healing well Uterus: Firm at U-2 Lochia: Minimal rubra Perineum: Intact Extremities: Trace edema, and negative Patrice's sign Neuro: Grossly normal A) 32-year-old S/P primary c/s POD#5 s/p ?eclamptic seizure P) Discharge home today Continue Pelvic rest [id number] Discussed danger signs (infection, preeclampsia, depression, heavy bleeding, etc ) RTO Thursday, weeks f/u with neurology 11/05/17 13:33 Vaginal - Diagnosis Amniotic Fluid Color: Meconium Stained - Procedures Non-surgical Procedures: Amniotomy, IUPC - Delivery Providers Surgeon: Susana Babcock Labor Contractor: Maryse Martinez Anesthesiologist: Hugo Pastor - Delivery Number of Prior Sections: 0 Indications for Current Section: Arrest of Dilation Non-surgical Procedures: Amniotomy, IUPC Surgical Procedures: Unscheduled Intra-op Complications: Other (Specify) (necrotic left ovarian cyst, removed) EBL: [address] Data YUN: 10/27/17 Gestational Age: 41 week(s) and 2 day(s) Son Delivery Date: 11/01/17 Delivery Time: 01:20 Sex of Infant: Female Weight (gm): 3566 g Score (1 Min): 8 Score (5 Min): 9 Discharge Information - Discharge Information Condition: Good Instruction/Follow Up: One Week, Four Weeks, Six Weeks
== END 2017-11-05 14:45 | disposition home or self-care (01) | DRG 766 ==
LOC: OBSVTOIN 21:16 → FLD 21:16 → FOB 11-02 12:47
PROVIDERS: ADMIT Obstetrics & Gynecology; ATTEND Obstetrics & Gynecology
PROC: 4A1J7BZ Monitoring of Products of Conception, Nervous Pressure, Via Natural or Artificial Opening (ICD-10-PCS; 2017-10-31)
PROC: 10907ZC Drainage of Amniotic Fluid, Therapeutic from Products of Conception, Via Natural or Artificial Opening (ICD-10-PCS; 2017-10-31)
PROC: 0UB10ZZ Excision of Left Ovary, Open Approach (ICD-10-PCS; principal; 2017-11-01)
PROC: 10D00Z1 Extraction of Products of Conception, Low, Open Approach (ICD-10-PCS; principal; 2017-11-01)
DX: O15.2 Eclampsia complicating the puerperium (principal); R56.9 Unspecified convulsions; O32.8XX0 Maternal care for other malpresentation of fetus, not applicable or unspecified; O62.0 Primary inadequate contractions; O34.83 Maternal care for other abnormalities of pelvic organs, third trimester; Z3A.40 40 weeks gestation of pregnancy; Z37.0 Single live birth
CPT/HCPCS: A9585; G0378; J0290; J0610; J0690; J1885; J2060; J2210; J2270; J2274; J2370; J2405; J2550; J2590; J2780; J3010; J3105; J3475